=== PATIENT | male | born 1975 | race Caucasian/White ===

== ENCOUNTER 2016-07-12 07:22 | Observation (INO) | payer OTHER ==
--- NOTE | 2016-07-12 07:25 | EDPHY ---
HPI/HX/ROS/PE/MDM Narrative: CHIEF COMPLAINT: Right leg weakness. HPI: The patient is a 40-year-old male who presents with right-sided weakness that he woke up with this morning. He felt completely fine yesterday evening. He did go to the bathroom during the night around 1500 but cannot remember if he had the deficits at that time. He reports initially being unable to walk this morning but was able to walk by the time EMS arrived. He admits associated right-sided paresthesias. He did have 2 marijuana gummies prior to bed to help him sleep but otherwise notes no changes in behavior. He denies confusion, expressive aphasia, headache, or other complaints. REVIEW OF SYSTEMS: Aside from elements discussed in the HPI, a comprehensive 10-point review of systems was reviewed and is negative. PMH: Diabetes. SOCIAL HISTORY: Visiting [place] for a conference. PHYSICAL EXAM: General: Patient is alert, in no acute distress. ENT: Eyes are normal to inspection. ENT inspection normal. Neck: Normal inspection. Full range of motion. Respiratory: No respiratory distress. Breath sounds normal bilaterally. Cardiovascular: Regular rate and rhythm. Strong peripheral pulses. Abdomen: The abdomen is nontender to palpation. There are no peritoneal signs. There are normal bowel sounds. Back: Normal to inspection. No tenderness to palpation. Skin: Normal color. No rash. Warm and dry. Extremities: Normal appearance. Full range of motion. Neuro: Oriented x3. Normal sensory function. Right pronator drift. Unable to fully lift right leg off bed. gas cutter intact. Portions of this note were transcribed by an ED scribe. I personally performed the history, physical exam, and medical decision making; and confirm the accuracy of the information in the transcribed note. ED Course: I met EMS on arrival and obtained a report from the laboratory clerk. An IV was established and labs ordered. Head CT ordered. Stroke alert was not called as this was an unusual presentation, symptoms appeared to be improving, and timing of onset was not confirmable by patient. 0801: CT reported to me negative by the radiologist Dr. Toribio. CTA head and cervical spine ordered. 0844: CTAs reported to me negative by Dr. Venegas, radiology. I discussed this with the patient at this time. He is not feeling better and his symptoms have not improved. Brain MRI ordered. 918: Consulted with Dr. Zuñiga, neurology. 0940: Dr. Zuñiga in the ED consulting with the patient and viewing MRI imaging. 0950: Dr. Zuñiga believes this could represent a stroke or brain stem glioma. The patient is not a TPA candidate. He would like the patient admitted for further workup. I consulted with Shey Posey, hospitalist, at this time. She accepts admission for Dr. Braxton. 1034: Dr. Flores confirms possible brainstem stroke. Study: CT of the head. Indication: Right-sided weakness. Results: Negative. The study was read by the radiologist, Dr. Toribio. I viewed the images myself on the PACS system. Study: CTA of the head/c-spine. Indication: Right-sided weakness. Results: Negative. The study was read by the radiologist, Dr. Venegas. I viewed the images myself on the PACS system. MDM: This patient is not a tPA candidate based on uncertainty of timing, appearance on MRI that suggest abnormality has been present for >6 hours, and size of vessel. Dr. Zuñiga agrees with this decision. I see no evidence of SAH, SDH, seizure, peripheral nerve palsy or head trauma. - Data Points Laboratory Results: Laboratory Results 07/12/16 07:28 07/12/16 07:28 07/12/16 07/12/16 07/12/16 07:28 07:28 07:27 WBC 9.63 10^3/uL H 10^3/uL (3.80-9.50) RBC 5.25 10^6/uL 10^6/uL (4.40-6.38) Hgb 16.8 g/dL g/dL (13.7-17.5) POC Hgb 17.0 gm/dL gm/dL (14.5-17.3) Hct 47.5 % % (40.0-51.0) POC Hct 50 % % (42.8-50.6) MCV 90.5 fL fL (81.5-99.8) MCH 32.0 pg pg (27.9-34.1) MCHC 35.4 g/dL g/dL (32.4-36.7) RDW 12.2 % % (11.5-15.2) Plt Count 204 10^3/uL 10^3/uL (150-400) MPV 9.8 fL fL (8.7-11.7) Neut % (Auto) 73.1 % % (39.3-74.2) Lymph % (Auto) 17.3 % % (15.0-45.0) [place] % (Auto) 5.7 % % (4.5-13.0) Eos % (Auto) 3.0 % % (0.6-7.6) Baso % (Auto) 0.4 % % (0.3-1.7) Nucleat RBC Rel Count 0.0 % % (0.0-0.2) Absolute Neuts (auto) 7.03 10^3/uL H 10^3/uL (1.70-6.50) Absolute Lymphs (auto) 1.67 10^3/uL 10^3/uL (1.00-3.00) Absolute Monos (auto) 0.55 10^3/uL 10^3/uL (0.30-0.80) Absolute Eos (auto) 0.29 10^3/uL 10^3/uL (0.03-0.40) Absolute Basos (auto) 0.04 10^3/uL 10^3/uL (0.02-0.10) Absolute Nucleated RBC 0.00 10^3/uL 10^3/uL (0-0.01) Immature Gran % 0.5 % % (0.0-1.1) Immature Gran # 0.05 10^3/uL 10^3/uL (0.00-0.10) POC Sodium 139 mEq/L mEq/L (134-144) Sodium 139 mEq/L mEq/L (134-144) POC Potassium 4.0 mEq/L mEq/L (3.3-5.0) Potassium 4.4 mEq/L mEq/L (3.5-5.2) POC Chloride 101 mEq/L mEq/L (96-108) Chloride 104 mEq/L mEq/L (97-110) Carbon Dioxide 24 mEq/l mEq/l (22-31) Anion Gap 11 mEq/L mEq/L (8-16) POC BUN 22 mg/dL mg/dL (7-23) BUN 21 mg/dL mg/dL (7-23) Creatinine 0.8 mg/dL mg/dL (0.7-1.3) POC Creatinine 0.7 mg/dL L mg/dL (0.8-1.5) Estimated GFR > 60 Glucose 280 mg/dL H mg/dL (70-100) POC Glucose 282 mg/dL H mg/dL (70-100) Calcium 9.2 mg/dL mg/dL (8.5-10.4) Medications Given: Discontinued Medications Sodium Chloride (Ns) 1,000 mls @ 0 mls/hr IV ONCE ONE PRN Reason: Wide Open Stop: 07/12/16 07:34 Last Admin: 07/12/16 07:52 Dose: 1,000 mls Point of Care Test Results: 07/12/16 07:27 POC Sodium 139 POC Potassium 4.0 POC Chloride 101 POC BUN 22 POC Creatinine 0.7 L POC Glucose 282 H General Initial Vital Signs: Initial Vital Signs Temperature (C) 36.8 C 07/12/16 07:22 Heart Rate 78 07/12/16 07:22 Respiratory Rate 16 07/12/16 07:22 Blood Pressure 134/93 H 07/12/16 07:22 O2 Sat (%) 94 07/12/16 07:22 O2 Delivery Mode Room Air Allergies/Adverse Reactions: No Known Allergies Allergy (Unverified 07/12/16 07:35) Home Medications: Medication Instructions Recorded Amphet Asp and D/Amphet [Adderall 30 mg PO DAILY 07/12/16 10 MG (*)] Aspirin [Aspirin 81mg (*)] 81 mg PO DAILY 07/12/16 Insulin Aspart Novolog 70/30 40 units SQ TIDMEAL 07/12/16 [Novolog Mix 70/30 (*)] Insulin Glargine [Lantus 100 42 units SC HS 07/12/16 UNITS/ML (*)] Lisinopril/Hctz 20/12.5MG 1 ea PO DAILY 07/12/16 [Zestoretic/Prinzide 20/12.5MG (*)] Departure - Departure Disposition: [facility] Inpatient Acute Clinical Impression: CVA (cerebral vascular accident) Qualifiers: CVA mechanism: unspecified Qualified Code(s): I63.9 - Cerebral infarction, unspecified Condition: Fair Report Scribed for: Ok Araujo Report Scribed by: Zach Suero Date of Report: 07/12/16 Time of Report: 08:24
[2016-07-12] MEDS ORDERED: NS 1,000 ML IV ONE (07:33)
[2016-07-12 07:41] LABS: % IMMATURE GRANULYOCYTES 0.5 % (0.0-1.1); ABSOLUTE IMMATURE GRANULOCYTES 0.05 10^3/uL (0.00-0.10); ADD DIFF? NO; ADD MORPH? NO; ADD SCAN? NO; ATYPICAL LYMPHOCYTE FLAG 0 (0-99); FRAGMENT RBC FLAG 0 (0-99); HEMATOCRIT 47.5 % (40.0-51.0); HEMOGLOBIN 16.8 g/dL (13.7-17.5); LEFT SHIFT FLG 0 (0-99); LIPEMIA HEMOLYSIS FLAG 90 (0-99); MEAN CELL HEMOGLOBIN CONCENTR. 35.4 g/dL (32.4-36.7); MEAN CELL VOLUME 90.5 fL (81.5-99.8); MEAN PLATELET VOLUME 9.8 fL (8.7-11.7); PLATELET CLUMPS FLAG 0 (0-99); PLATELET COUNT 204 10^3/uL (150-400); RED BLOOD CELL COUNT 5.25 10^6/uL (4.40-6.38); RED CELL DISTRIBUTION WIDTH 12.2 % (11.5-15.2)
[2016-07-12 08:02] LABS: ANION GAP 11 mEq/L (8-16); CALCIUM 9.2 mg/dL (8.5-10.4); CARBON DIOXIDE 24 mEq/l (22-31); CHLORIDE 104 mEq/L (97-110); CREATININE 0.8 mg/dL (0.7-1.3); GLOMERULAR FILTRATION RATE > 60; GLUCOSE 280 mg/dL (70-100); POTASSIUM 4.4 mEq/L (3.5-5.2); SODIUM 139 mEq/L (134-144)
[2016-07-12] MEDS ORDERED: IOPAMIDOL (ISOVUE-370) 150 ML BTL IV ONE (08:05)
[2016-07-12 13:39] LABS: HEMATOCRIT 46.7 % (40.0-51.0)
[2016-07-12 14:08] LABS: HEMOGLOBIN A1C 8.5 % (4.0-6.0)
--- NOTE | 2016-07-12 14:26 | PDCONSULT ---
Marine [employer] Note: HOSPITAL NEUROLOGY CONSULT REQUESTING: Neville Braxton MD REASON: stroke HPI: This is a 32-year-old right-handed gentleman with a history of uncontrolled diabetes, hypertension, smoking and obesity who presented to our emergency department this morning due to right-sided weakness. Patient is visiting from out of town for a work training event. He was in his usual state of health last evening. He states he went to sleep, but prior to going to bed he took 2 THC gummies. He states he woke up around 3:00 a.m. and went to the bathroom but was unsure of any deficit that point. He woke up around 7:00 a.m. and noted right-sided weakness, particularly in the arm and leg. He also noted a an abnormal sensation in the right arm. He also noted slurred speech. EMS was summoned and the patient was taken to our facility. Due to his last known well, he was not an IV thrombolytic candidate. CT angiogram of the head and neck was performed which did not show any large or medium vessel occlusive disease, so he was not an interventional candidate. Patient has no prior history of stroke or TIA. He does note he has had longstanding insulin-dependent diabetes which has been uncontrolled. He also notes he has a history of hypertension but he states he does not take medication for this. He has also been a long-standing pack-a-day smoker. He was also formerly a heavy drinker but stopped drinking this past April. He denies any other ingestions aside from cannabis edibles, including cocaine/ stimulants/vasoactives. He denies any headaches, visual disturbances, language disturbance. He has not had any fevers or neck stiffness. No cognitive complaints. He denies any rashes, joint swelling or redness. He has had no prior history of blood clotting problems. ROS: As per the HPI, otherwise a complete 12 point ROS was performed and is negative ALLERGIES AND MEDS: As recorded in the EMR - reviewed and reconciled PFSH: As per the intake H&P by Dr. Braxton from today EXAM: GEN: obese man laying in NAD HEENT: NCAT, sclera anicteric, conjunctiva not injected, MMM, oropharynx clear, no scalp tenderness NECK: supple, nontender, no meningismus CV: RRR s1 s2 wo m/r/c/g. Carotid pulses 2+ wo bruit NEURO: NIHSS (-1 speech, -1 RUE motor, -2 RLE motor) MS: awake, alert, oriented to all spheres. Speech with subtle flaccid dysarthria. No language disturbance. Follows commands. Attends to both sides. Recent/remote memory grossly intact. Mood euthymic. Good fund of knowledge. CN: pupils 3mm round and reactive. Fundi with sharp discs. VFF. Primary gaze centered. Full ocular motility. Facial sensation preserved. Face symmetric. Hearing grossly intact to finger rub. Palatoglossal movements intact. Shoulder shrug and head turn strong. MOTOR: normal bulk. Lower tone in RUE/RLE. No adventitial movements. UMN pattern weakness in RUE at 4/5 and in RLE at 3+/5. SENSORY: symmetric LT/PP. No extinction. COORD: no ataxia FN/HS. Gonsalo labored in RUE. REFLEX: plantar extensor right, flexor left. No clonus. DTRS 2/4. GAIT: deferred to PT safety eval DATA REVIEW: Labs reviewed in EMR PERSONALLY INTERPRETED RESULTS AND DATA: MRI brain wo shows an acute lacunar infarct in the left anterior paramedian pontine region CT angiogram of the head and neck shows patent intra and extracranial vessels IMPRESSION AND RECOMMENDATIONS: // ACUTE ISCHEMIC STROKE // HTN // UNCONTROLLED INSULIN DEPENDENT DM // TOBACCO ABUSE - SMOKING Patient presents with an acute stroke in the left anterior paramedian pontine region that is lacunar in nature and small vessel in mechanism. While the patient is young, he has long-standing conventional vascular risk factors which certainly would contribute to small vessel disease. I think the probability of a more exotic "stroke in the young" mechanism is unlikely. He is going to have hypercoagulable screening as well as drug screening as directed by the primary team. He has no autoimmune stigmata and no indication of vasculitic change on his angiographic studies. There is no family history of stroke, particularly at an early age and he has no symptoms concerning for a heritable/dysgenetic stroke syndrome. I think the focus should be on optimizing his conventional vascular risk factors in addition to rehabilitation. We will need to work on a safe disposition for him given his residence out of [facility]. - increase aspirin to 325 mg daily - goal normoglycemia with A1c less than 6.5 - he will need to work on this long- term with his PCP - goal normotension - he will need to work on this long-term with his PCP, as well. OK for permissive HTN in next 24 hours (up to 220/120), but then begin lowering to normal slowly - check lipids and add statin for goal LDL < 70 - UDS and hypercoag labs pending - smoking cessation advised - cont with alcohol abstinence - will need outpatient BRANDON screening - PT/OT/GRAIN CLEANER evals - stroke education - I don't think any further workup is warranted at this time given the lacunar nature of the infarct and his multiple uncontrolled conventional small-vessel risk factors, which are likely culprit. - He wants to be discharged as soon as safely possible. I think this will hinge on making definitive arrangements for safe transport back to [place] with a rehab plan in place on his arrival. I think driving would be a better idea than flying in the acute recovery phase.
[2016-07-12] MEDS ORDERED: ACETAMINOPHEN 325 MG TAB PO PRN (14:48)
[2016-07-12] MEDS ORDERED: ONDANSETRON DISINTEGRATING 4 MG TAB PO PRN (14:48)
[2016-07-12] MEDS ORDERED: NICOTINE 21 MG/24 HR PATCH TD PRN (14:48)
[2016-07-12] MEDS ORDERED: ONDANSETRON 4 MG/2 ML VIAL IVP PRN (14:48)
[2016-07-12] MEDS ORDERED: NICOTINE POLACRILEX 2 MG GUM B PRN (14:48)
--- NOTE | 2016-07-12 14:54 | PDGENHP ---
History and Physical - Chief Complaint Acute paresis - History of Present Illness PCP: Dr. Marin in [place] HPI: 32-year-old male presents with acute paresis characterized as inability to ambulate, located on the right side in his upper extremity and lower extremity, associated with paresthesias, with unclear onset of symptoms. The patient's last known normal time was on the evening prior to this presentation he reports that he awoke at approximately 3:00 a.m. to use the restroom. He is unclear as to whether he was experiencing symptoms at that time. When he awoke on the day of presentation, he was experiencing the aforementioned symptoms and the duration was persistent thereafter. They seem to be exacerbated by attempting to ambulate. He did notice some associated dysarthria but no difficulty swallowing his morning medications. He has never experienced similar symptoms. History Information - Allergies/Home Medication List Allergies/Adverse Reactions: No Known Allergies Allergy (Unverified 07/12/16 07:35) Home Medications: Amphet Asp and D/Amphet [Adderall 10 MG (*)] 30 mg PO DAILY 07/12/16 [Last Taken 07/12/16] Aspirin [Aspirin 81mg (*)] 81 mg PO DAILY 07/12/16 [Last Taken 07/12/16 4 TABS] Insulin Aspart Novolog 70/30 [Novolog Mix 70/30 (*)] 40 units SQ TIDMEAL [Last Taken 07/11/16 18:00] Insulin Glargine [Lantus 100 UNITS/ML (*)] 42 units SC HS 07/12/16 [Last Taken 07/11/16] Lisinopril/Hctz 20/12.5MG [Zestoretic/Prinzide 20/12.5MG (*)] 1 ea PO DAILY 11/21 [Last Taken 07/12/16] I have personally reviewed and updated: family history, medical history, social history, surgical history - Past Medical History diabetes type 1 (Uses insulin), hypertension - Surgical History Reports: no pertinent surgical hx - Family History Additional family history: No family history of CVA - Social History Smoking Status: Heavy smoker Alcohol Use: None Drug Use: Other (Edible marijuana on the evening prior to presentation) Additional social history: Normally independent in ADLs, works for a [employer] having a conference in [facility] Review of Systems ROS: 10pt was reviewed & negative except for what was stated in HPI & below Neurological: Reports: paresthesia, other (Paresis, dysarthria) Physical Exam Temp Pulse Resp BP Pulse Ox 36.7 C 94 14 153/97 H 91 L 07/12/16 11:12 07/12/16 11:12 07/12/16 11:12 07/12/16 11:12 07/12/16 11:12 Constitutional: no apparent distress, not in pain, obese, No chronically ill appearing, No uncomfortable Eyes: PERRL, anicteric sclera, EOMI Ears, Nose, Mouth, Throat: moist mucous membranes, hearing normal, ears appear normal, no oral mucosal ulcers Cardiovascular: regular rate and rhythym, no murmur, rub, or gallop, No edema Respiratory: no respiratory distress, no rales or rhonchi, clear to auscultation Gastrointestinal: normoactive bowel sounds, soft, non-tender abdomen, no palpable masses Skin: warm, normal color, no rashes or abrasions, no fluctuance, no induration, No mottled Neurologic: AAOx3, weakness (4/5 motor strength right upper extremity, 3/5 motor strength right lower extremity), CN II-XII Intact, other (Prmdby-iu-drlv and npxj-br-bzei dysmetria right side, mild speech dysarthria), No sensation intact bilaterally (Right hemiparesthesia upper extremity and lower extremity), No facial droop Psychiatric: interacting appropriately, not anxious, not encephalopathic, thought process linear Lab Data & Imaging Review 07/12/16 13:30 07/12/16 07:28 WBC 9.63 10^3/uL (3.80-9.50) H 07/12/16 07:28 RBC 5.25 10^6/uL (4.40-6.38) 07/12/16 07:28 Hgb 16.8 g/dL (13.7-17.5) 07/12/16 07:28 POC Hgb 17.0 gm/dL (14.5-17.3) 07/12/16 07:27 Hct 46.7 % (40.0-51.0) 07/12/16 13:30 POC Hct 50 % (42.8-50.6) 07/12/16 07: MCV 90.5 fL (81.5-99.8) 07/12/16 07:28 MCH 32.0 pg (27.9-34.1) 07/12/16 07: MCHC 35.4 g/dL (32.4-36.7) 07/12/16 07: RDW 12.2 % (11.5-15.2) 07/12/16 07: Plt Count 204 10^3/uL (150-400) 07/12/16 07:28 MPV 9.8 fL (8.7-11.7) 07/12/16 07: Neut % (Auto) 73.1 % (39.3-74.2) 07/12/16 07: Lymph % (Auto) 17.3 % (15.0-45.0) 07/12/16 07: [place] % (Auto) 5.7 % (4.5-13.0) 07/12/16 07: Eos % (Auto) 3.0 % (0.6-7.6) 07/12/16 07: Baso % (Auto) 0.4 % (0.3-1.7) 07/12/16 07: Nucleat RBC Rel Count 0.0 % (0.0-0.2) 07/12/16 07: Absolute Neuts (auto) 7.03 10^3/uL (1.70-6.50) H 07/12/16 07: Absolute Lymphs (auto) 1.67 10^3/uL (1.00-3.00) 07/12/16 07: Absolute Monos (auto) 0.55 10^3/uL (0.30-0.80) 07/12/16 07: Absolute Eos (auto) 0.29 10^3/uL (0.03-0.40) 07/12/16 07: Absolute Basos (auto) 0.04 10^3/uL (0.02-0.10) 07/12/16 07: Absolute Nucleated RBC 0.00 10^3/uL (0-0.01) 07/12/16 07: Immature Gran % 0.5 % (0.0-1.1) 07/12/16 07:28 Immature Gran # 0.05 10^3/uL (0.00-0.10) 07/12/16 07:28 ESR 5 MM/HR (0-15) 07/12/16 13:30 POC Sodium 139 mEq/L (134-144) 07/12/16 07:27 Sodium 139 mEq/L (134-144) 07/12/16 07:28 POC Potassium 4.0 mEq/L (3.3-5.0) 07/12/16 07:27 Potassium 4.4 mEq/L (3.5-5.2) 07/12/16 07:28 POC Chloride 101 mEq/L (96-108) 07/12/16 07: Chloride 104 mEq/L (97-110) 07/12/16 07:28 Carbon Dioxide 24 mEq/l (22-31) 07/12/16 07:28 Anion Gap 11 mEq/L (8-16) 07/12/16 07:28 POC BUN 22 mg/dL (7-23) 07/12/16 07:27 BUN 21 mg/dL (7-23) 07/12/16 07:28 Creatinine 0.8 mg/dL (0.7-1.3) 07/12/16 07:28 POC Creatinine 0.7 mg/dL (0.8-1.5) L 07/12/16 07:27 Estimated GFR > 60 07/12/16 07:28 Glucose 280 mg/dL (70-100) H 07/12/16 07:28 POC Glucose 282 mg/dL (70-100) H 07/12/16 07:27 Hemoglobin A1c 8.5 % (4.0-6.0) H 07/12/16 13:30 Estim Average Glucose 197 mg/dL (68-126) H 07/12/16 13:30 Calcium 9.2 mg/dL (8.5-10.4) 07/12/16 07:28 Assessment & Plan Assessment: 40-year-old male presents with acute lacunar CVA Plan: 1. Acute CVA. New problem this provider, further workup indicated. Evidence by lacunar infarct in the left carl consistent with his presenting symptoms of paresis and paresthesias, noted on MRI -CT angiogram demonstrated no large vessel disease -telemetry has not demonstrated any evidence of atrial arrhythmias, personally interpreted -get echocardiogram with bubble study to ensure no ASD or evidence of significant valvular defect -given her young age, hypercoagulable workup sent -discussed with Dr. Zuñiga, he has recommended increasing patient's aspirin to 325 mg daily -getting lipid panel, initiate statin if LDL greater than 70 -getting A1c, recommend tighter glucose control as an outpatient -getting BUSINESS TEACHER, OT, PT evaluations, advanced diet thereafter -patient may require additional physical therapy and support given his ongoing deficits, this will dictate whether patient is safe to be discharged independently later today versus tomorrow, pending therapy recommendations 2. Hypertension. Chronic, allow permissive hypertension in setting of recent CVA -continue home dosage of LINDA and diuretic, up titrate if needed tomorrow 3. Diabetes mellitus type 1. Continue patient's home dosage of insulin Diet. NPO until BUSINESS TEACHER eval, then diabetic thereafter Prophylaxis. Low risk patient, SCDs Code. Full Disposition. Anticipated discharge is either today or tomorrow, pending therapy recommendations and evaluation as outlined above.
[2016-07-12] MEDS: INSULIN ASPART NovoLOG 70/30 100 UNITS/ML SYR SC SCH ×2 (15:18→17:44)
--- NOTE | 2016-07-12 15:43 | ECHO ---
[id number] + + [address] : : [place] [address] : : [phone] + + Adult Echocardiographic Report + ---+ :Name: YUNGChristal Date: 07/12/2016 01:03 PM : : Hospital Admission Number: [id number] Location: 359: :: 1975 Gender: Male Height: 72 in : :Age: 40 yrs Race: WH Weight: 284 lb : :Reason For Study: Eval LV Fx : : BSA: 2.5 meters2 : :History: TIA, right sided weakness : + ---+ MMode/2D Measurements \T\ Calculations IVSd: 0.95 cm LVIDd: 4.9 cm FS: 36.3 % Ao root diam: 3.7 cm LVPWd: 1.2 cm LVIDs: 3.1 cm EDV(Teich): 112.7 ml ACS: 2.0 cm ESV(Teich): 38.5 ml EF(Teich): 65.8 % Normal Measurement Values: + + :LVIDd (3.5-5.7cm) IVSd (0.6-1.1cm) LVPWd (0.6-1.1cm) Aortic Root (2.0-3.7cm)Left Atrium (1.5-4.0cm): :LV Vol(d) (76-115ml) LV Vol(s) (29-48ml) Ejec Fraction (50-65%)PV Boris (0.6- 1.2m/s) TV Boris (0.4-1.0m/s) : :MV E Boris (0.8-1.0m/s)MV A Boris (0.3-1.0m/s)LVOT Boris (0.7-1.2m/s) Asc Ao Boris ( 0.9-1.8m/s) : + + Doppler Measurements \T\ Calculations MV E max boris: Ao V2 max: LV V1 max: PA V2 max: 97.7 cm/sec 146.6 cm/sec 121.4 cm/sec 127.6 cm/sec MV A max boris: Ao max PG: LV V1 max PG: PA max P.1 cm/sec 8.6 mmHg 5.9 mmHg 6.5 mmHg MV E/A: 0.89 Left Ventricle The left ventricle is normal in size. There is normal left ventricular wall thickness. The left ventricular ejection fraction is normal. There is Doppler evidence for diastolic dysfunction. Ejection Fraction = 66%. The left ventricular wall motion is normal. Right Ventricle The right ventricle is normal in size and function. Atria The left atrial size is normal. Right atrial size is normal. Injection of contrast documented no interatrial shunt. The interatrial septum is intact with no evidence for an atrial septal defect. Mitral Valve The mitral valve is normal in structure and function. There is no mitral valve stenosis. There is no mitral regurgitation noted. Tricuspid Valve Normal tricuspid valve. No tricuspid regurgitation. Aortic Valve The aortic valve is normal in structure and function. There is no aortic stenosis. There is no aortic insufficiency. Pulmonic Valve The pulmonic valve is normal in structure and function. There is no pulmonic valvular regurgitation. Great Vessels The aortic root is normal size. Pericardium/Pleural There is no pericardial effusion. Conclusion A complete two-dimensional transthoracic echocardiogram was performed (2D, M-mode, Doppler and color flow Doppler). The left ventricular ejection fraction is normal. There is Doppler evidence for diastolic dysfunction. Ejection Fraction = 66%. The left ventricular wall motion is normal. The right ventricle is normal in size and function. Injection of contrast documented no interatrial shunt. The interatrial septum is intact with no evidence for an atrial septal defect. The mitral valve is normal in structure and function. The aortic valve is normal in structure and function. There is no pericardial effusion. Final Reading Physician: Neena Woodruff signed on 07/12/2016 03:42 PM Ordering Physician: Neville Braxton Performed By: Jason Engel, CS
[2016-07-12] MEDS ORDERED: INSULIN GLARGINE 100 UNITS/ML SYRINGE SC SCH (21:00)
[2016-07-13 00:38] LABS: ETHANOL URINE < 10 (NEGATIVE); ETHANOL URINE NEGATIVE (NEGATIVE)
[2016-07-13 05:14] LABS: % IMMATURE GRANULYOCYTES 0.8 % (0.0-1.1); ABSOLUTE IMMATURE GRANULOCYTES 0.06 10^3/uL (0.00-0.10); ADD DIFF? NO; ADD MORPH? NO; ADD SCAN? NO; ATYPICAL LYMPHOCYTE FLAG 20 (0-99); FRAGMENT RBC FLAG 0 (0-99); HEMATOCRIT 46.6 % (40.0-51.0); HEMOGLOBIN 15.9 g/dL (13.7-17.5); LEFT SHIFT FLG 0 (0-99); LIPEMIA HEMOLYSIS FLAG 90 (0-99); MEAN CELL HEMOGLOBIN CONCENTR. 34.1 g/dL (32.4-36.7); MEAN CELL VOLUME 90.8 fL (81.5-99.8); MEAN PLATELET VOLUME 9.8 fL (8.7-11.7); PLATELET CLUMPS FLAG 0 (0-99); PLATELET COUNT 190 10^3/uL (150-400); RED BLOOD CELL COUNT 5.13 10^6/uL (4.40-6.38); RED CELL DISTRIBUTION WIDTH 12.2 % (11.5-15.2)
[2016-07-13 05:43] LABS: ANION GAP 8 mEq/L (8-16); CALCIUM 8.9 mg/dL (8.5-10.4); CARBON DIOXIDE 25 mEq/l (22-31); CHLORIDE 105 mEq/L (97-110); CHOLESTEROL 143 mg/dL (140-200); CREATININE 0.7 mg/dL (0.7-1.3); GLOMERULAR FILTRATION RATE > 60; GLUCOSE 178 mg/dL (70-100); HIGH DENSITY LIPOPROTEIN 27 mg/dL (40-65); LDL/HDL RATIO 3.04 RATIO (1.00-3.64); LOW DENSITY LIPOPROTEIN 82 mg/dL (70-100); NON-HIGH DENSITY LIPOPROTEIN 116 mg/dL (90-129); POTASSIUM 4.4 mEq/L (3.5-5.2); SODIUM 138 mEq/L (134-144); TRIGLYCERIDE 171 mg/dL (40-150); VERY LOW DENSITY LIPOPROTEINS 34 mg/dL (8-25)
[2016-07-13 07:22] VITALS: BP 132/80; PULSE 72; RESP 17; TEMP 98; O2SAT 90
[2016-07-13] MEDS: INSULIN ASPART NovoLOG 70/30 100 UNITS/ML SYR SC SCH ×2 (08:41→13:32)
[2016-07-13] MEDS ORDERED: ASPIRIN EC 325 MG TAB PO SCH (09:00)
[2016-07-13] MEDS ORDERED: ASPIRIN EC 81 MG TAB PO SCH (09:00)
[2016-07-13] MEDS ORDERED: LISINOPRIL/HCTZ 20/12.5MG 1 EA TAB PO SCH (09:00)
[2016-07-13] MEDS ORDERED: ATORVASTATIN CALCIUM 20 MG TAB PO SCH (11:30)
--- NOTE | 2016-07-13 11:30 | HOSPPROG ---
Hospitalist Progress Note Assessment/Plan: Patient is a 32-year-old male with a history of uncontrolled type 1 diabetes, hypertension, smoking and obesity who presented to the emergency room due to right-sided weakness. Today is my 1st encounter with the patient. Chart reviewed. * Acute ischemic stroke - MRI of the brain shows an acute lacunar infarct in the left anterior pontine region - aspirin 325 mg and statin therapy - echo shows no interatrial shunt/ diastolic dysfunction - hypercoagulable panel is pending - A1c 8.5 - PT and OT are recommending OP therapy - ST notes mild dysarthria * HTN *Nicotine Dependence -good discussion about discontinuing this permanently *DM2 -needs tighter control -he said is hgba1c was 8.9 recently and is trending down -he will see his PCP at home *Obesity: knows his weight is an issue/ BMI of 38 * +urine drug screen/amphetamines + THC/ patient is on Adderall Plan: patient has to return to [place]/ [facility] to get f/u care/ in addition neurology is recommending driving/his flew out and they are driving home Subjective: Julien has no complaints/ is well aware of changes he needs to make. Objective: Vital Signs Temp Pulse Resp BP Pulse Ox 36.6 C 72 17 132/80 H 90 L 07/13/16 07:14 07/13/16 07:14 07/13/16 07:14 07/13/16 08:41 07/13/16 07:14 Laboratory Results 07/13/16 04:35 07/13/16 04:35 07/12/16 07/13/16 07/14/16 05:59 05:59 05:59 Intake Total 1000 Output Total 650 Balance 350 - Physical Exam Constitutional: not in pain, uncomfortable Eyes: PERRL Ears, Nose, Mouth, Throat: hearing normal Cardiovascular: regular rate and rhythym, no murmur, rub, or gallop Respiratory: no respiratory distress Gastrointestinal: normoactive bowel sounds Skin: warm, normal color Musculoskeletal: no muscle tenderness Neurologic: AAOx3, weakness (mild weakness w ambulation on right side), CN II- XII Intact, No pronator drift, No facial droop ICD10 Worksheet Patient Problems: Problems Problem Status Onset CVA (cerebral vascular accident) Acute
[2016-07-13 13:00] LABS: ALBUMIN 3.4 g/dL (3.5-5.0); BILIRUBIN,TOTAL 0.6 mg/dL (0.1-1.4); BILIRUBIN-CONJUGATED 0.5 mg/dL (0.0-0.5); BILIRUBIN-UNCONJUGATED 0.1 mg/dL (0.0-1.1)
--- NOTE | 2016-07-13 14:20 | GDS ---
[f rep st] DISCHARGE SUMMARY DISCHARGE DIAGNOSES: 1. Acute ischemic stroke. 2. Hypertension. 3. Nicotine dependence. 4. Diabetes type 2. 5. Obesity. 6. Positive urine drug screen. CONSULTATIONS DURING HIS STAY: Dr. Demetris Zuñiga, with neurology services. HISTORY OF PRESENT ILLNESS: Briefly, the patient is a 40-year-old male who presented to the ER having difficulty with ambulation due to right lower extremity weakness and also had right side upper extremity weakness with associated paresthesia. If was unclear of the onset of his symptoms. He woke up at 3 a.m. to use the restroom. He was unclear at that time he was experiencing any symptoms. When he woke on the day of presentation, he started to note that he was having difficulty walking. He did notice some dysarthria when speaking. He came to the emergency room and had an MRI performed. This showed a small acute/subacute ischemic infarction involving the left paramedian carl. He had no hemorrhagic transformation or mass effect. Otherwise, he had a normal brain. Head CT was normal. Head and neck CTA show normal CT angiogram of the neck and a normal CT angiogram of the [place]. An echocardiogram was performed. This showed an EF of 66% with evidence of diastolic dysfunction. Injection of contrast documented no interatrial shunt. He was placed on the ortho neuro floor. On the inspector balance bridge, he has been in sinus rhythm. He will be started on statin therapy and continue aspirin therapy. He lives in the [facility]. He has been given detailed instructions to follow up with his primary care provider. HOSPITAL COURSE PER PROBLEM: 1. Acute ischemic stroke. He will be on aspirin and statin therapy. His hypercoagulable panel is pending. Hemoglobin A1c is 8.5. Recommending that he get outpatient physical therapy, occupational therapy, and speech therapy. 2. Hypertension. Blood pressure is stable. 3. Nicotine dependence. We had a good discussion about stopping this permanently. 4. Diabetes type 2. His hemoglobin A1C at home was 8.9, and is now 8.5. He going in the right direction. I have encouraged him to continue getting tighter control of his glucoses. 5. Obesity. He knows his weight is an issue. He has a BMI of 38. 6. Positive drug screen for THC and amphetamines. The patient is on Adderall. He does admit to cannabis use. PENDING LABS: His hypercoagulable panel is pending. CONDITION AT DISCHARGE: Stable. Blood pressure is 132/80, heart rate 72, respiratory rate is 17, O2 sats on room air 90%. Temperature is 36.6 Celsius. MEDICATIONS AT DISCHARGE: Please see the EMR. DISCHARGE INSTRUCTIONS: 1. To return to the ER if he has any further stroke-like symptoms. 2. To have his primary care doctor follow up with his hypercoagulable panel. 3. Take copies of his imaging with him back to the [facility]. 4. Recommended he stop smoking completely. 5. Also recommend he get a Holter monitor to monitor for any type of arrhythmia. /[id number]/MODL MTDD
[2016-07-13 14:38] LABS: PROTEIN S FREE ANTIGEN 118 % (65 - 160)
[2016-07-13 14:47] LABS: INTERPRETATION See Comments; PT 11.2 sec; PTT 23 sec (26 - 36)
[2016-07-14 09:07] LABS: PROTEIN C ACTIVITY 92 % (70 - 150)
[2016-07-14 12:03] LABS: PROTEIN S ACTIVITY 118 % (65 - 160)
[2016-07-14 13:31] LABS: INTERPRETATION See Comments
[2016-07-15 08:43] LABS: ANTITHROMBIN 3 ANTIGEN 88 % (80 - 120)
[2016-07-15 13:55] LABS: PROTEIN C ANTIGEN 79 % (70-150)
== END 2016-07-13 13:58 | disposition home or self-care (01) ==
LOC: F3N 10:59
PROVIDERS: ADMIT Internal Medicine; ATTEND Internal Medicine
DX: I63.9 Cerebral infarction, unspecified (principal); G81.91 Hemiplegia, unspecified affecting right dominant side; I10 Essential (primary) hypertension; E11.9 Type 2 diabetes mellitus without complications; F17.200 Nicotine dependence, unspecified, uncomplicated; F12.90 Cannabis use, unspecified, uncomplicated; E66.9 Obesity, unspecified; Z68.38 Body mass index [BMI] 38.0-38.9, adult
CPT/HCPCS: 70450; 70496; 70498; 70551; 92507; 92523; 92610; 93306; 96360; 97116; 97162; 97165; 97530; 99285; G0378; 80305; 81332-90; 81479-90; 82947-QW; 85301-90; 85302-90; 85303-90; 85306-90; G0480; J1815; Q9967